=== PATIENT | female | born 1980 | race African-American/Black ===

== ENCOUNTER 2016-08-17 12:14 | Emergency (ER) | payer OTHER ==
[~2016-08-17] VITALS: Ht 162.6 cm; Wt 105.1 kg
[2016-08-17 15:50] VITALS: BP 108/96
== END 2016-08-17 16:16 | disposition home or self-care (01) ==
LOC: EME 12:14
DX: S20.212A Contusion of left front wall of thorax, initial encounter (principal); V89.2XXA Person injured in unspecified motor-vehicle accident, traffic, initial encounter; Y92.410 Unspecified street and highway as the place of occurrence of the external cause; Z86.718 Personal history of other venous thrombosis and embolism; Z87.891 Personal history of nicotine dependence
CPT/HCPCS: 71101; 99281; 99285; J1885